=== PATIENT | female | born 1995 | race Caucasian/White ===

== ENCOUNTER 2018-11-04 22:08 | Inpatient (IN) | payer OTHER ==
[2018-11-04 22:41] LABS: ADD MAN DIFF? NO
[2018-11-04 22:44] LABS: WHITE BLOOD COUNT 13.7 10^3/ul (4.8-10.8)
[2018-11-04 22:44] LABS: BASOPHIL # 0.1 10^3/ul (0.0-0.1); BASOPHILS % 0.4 % (0.0-2.0); EOSINOPHILS # 0.1 10^3/ul (0.0-0.5); EOSINOPHILS % 0.4 % (0.0-7.0); HEMATOCRIT 39.3 % (37.0-47.0); HEMOGLOBIN 13.1 g/dl (12.0-16.0); LYMPHOCYTES # 1.5 10^3/ul (0.8-2.9); MEAN CORPUSCULAR HGB CONC 33.3 g/dl (32.0-37.0); MEAN CORPUSCULAR VOLUME 90.1 fl (82.0-101.0); MEAN PLATELET VOLUME 11.5 fl (7.4-10.4); MONOCYTE # 0.9 10^3/ul (0.3-0.9); MONOCYTES % 6.5 % (0.0-11.0); NEUTROPHIL # 11.1 10^3/ul (1.6-7.5); NEUTROPHILS % 81.3 % (39.0-77.0); PLATELET COUNT 318 10^3/UL (140-415); RED BLOOD COUNT 4.36 10^6/ul (4.20-5.40); RED CELL DISTRIBUTION WIDTH 12.9 % (11.5-14.5)
[2018-11-04 23:03] LABS: ALANINE AMINOTRANSFERASE 17 IU/L (13-69); ALBUMIN 4.4 g/dl (3.3-4.9); ALBUMIN/GLOBULIN RATIO 1.29; ALKALINE PHOSPHATASE 94 IU/L (42-121); ANION GAP 9 (5-13); ASPARTATE AMINO TRANSFERASE 24 IU/L (15-46); BILIRUBIN,INDIRECT 0.4 mg/dl (0-1.1); BILIRUBIN,TOTAL 0.4 mg/dl (0.2-1.3); BLOOD UREA NITROGEN 13 mg/dl (7-20); CALCIUM 9.9 mg/dl (8.4-10.2); CARBON DIOXIDE 28 mmol/L (21-31); CHLORIDE 103 mmol/L (97-110); CREATININE 0.41 mg/dl (0.44-1.00); Estimated GFR > 60 mL/min (>60); GLUCOSE 96 mg/dl (70-220); INR 0.93; POTASSIUM 3.9 mmol/L (3.5-5.1); PROTIME 12.6 Sec (11.9-14.9); SODIUM 140 mmol/L (135-144); TOTAL PROTEIN 7.8 g/dl (6.1-8.1)
[2018-11-04 23:04] LABS: PARTIAL THROMBOPLASTIN TIME 32.7 Sec (23.0-35.0)
[2018-11-04 23:06] LABS: MODE TRACH COLLAR; MetHgb Venous 0.4 %; Sample Type Blood venous; Site VENOUS LINE; Venous COHb 0 %; Venous Fraction OxyHgb 92.4 %; Venous Oxygen Sat 92.8 mmHG (55.0-75.0); Venous Total Hemglobin 13.7 g/dl
[2018-11-04] MEDS: SOD CHLORIDE 0.9% 1,000 ML IV (23:11)
[2018-11-04 23:15] LABS: TROPONIN-I < 0.012 ng/ml (0.000-0.120)
[2018-11-04 23:17] LABS: ADD UMIC NO; UR ASCORBIC ACID 40 mg/dL (NEGATIVE); UR BILIRUBIN (Dip) NEGATIVE (NEGATIVE); UR BLOOD (Dip) NEGATIVE (NEGATIVE); UR CLARITY SLIGHTLY CLOUDY (CLEAR); UR COLOR YELLOW (YELLOW); UR GLUCOSE (Dip) 3+ mg/dL (NEGATIVE); UR KETONES (Dip) TRACE mg/dL (NEGATIVE); UR LEUKOCYTE ESTERASE (Dip) NEGATIVE Leu/ul (NEGATIVE); UR MUCUS FEW /HPF (NONE SEEN); UR NITRITE (Dip) NEGATIVE (NEGATIVE); UR RBC 2 /HPF (0-5); UR SPECIFIC GRAVITY (Dip) 1.031 (1.003-1.030); UR TOTAL PROTEIN (Dip) NEGATIVE (NEGATIVE); UR UROBILINOGEN (Dip) NEGATIVE (NEGATIVE); UR WBC 1 /HPF (0-5)
[2018-11-04 23:36] LABS: PROCALCITONIN 1.15 ng/mL (0.00-0.10)
[2018-11-05 00:54] LABS: LACTIC ACID 0.9 mmol/L (0.5-2.0)
[2018-11-05] MEDS: PIPER-TAZO 3.375 GM IV (PMX) 100 ML IVPB (00:59)
[2018-11-05] MEDS: VANCOMYCIN 1 GM (PMX) 250 ML IVPB (01:32)
[2018-11-05 03:37] LABS: LACTIC ACID 0.8 mmol/L (0.5-2.0)
[2018-11-05] MEDS: ACETAMINOPHEN 650 MG SUPP PR (09:22)
[2018-11-05] MEDS ORDERED: NACL 0.9% 3 ML SYG IV (10:00)
[2018-11-05] MEDS ORDERED: MAGNESIUM HYDROXIDE 30ML CUP PO (10:00)
[2018-11-05] MEDS ORDERED: BISACODYL 10 MG SUPP PR (10:00)
[2018-11-05] MEDS ORDERED: DOCUSATE SODIUM 100 MG CAP PO (10:00)
[2018-11-05] MEDS ORDERED: ACETAMINOPHEN 650 MG SUPP PR (10:00)
[2018-11-05] MEDS ORDERED: BISACODYL (EC) 5 MG TAB PO (10:00)
[2018-11-05] MEDS ORDERED: ONDANSETRON 4 MG TAB PO (10:00)
[2018-11-05] MEDS: CEFTRIAXONE 1 GM/50 ML (PMX) 50 ML IVPB (11:21)
[2018-11-05] MEDS: SOD CHLORIDE 0.9% 1,000 ML IV (11:21)
[2018-11-05] MEDS: ALBUTEROL/IPRATROPIUM (NEB) 3 ML AMP HHN ×2 (13:44→20:41)
[2018-11-05] MEDS ORDERED: LOPERAMIDE 2 MG CAP GTB (15:00)
[2018-11-05] MEDS ORDERED: LORAZEPAM 0.5 MG TAB GTB (15:00)
[2018-11-05] MEDS: ENOXAPARIN 40 MG/0.4 ML SYG SC (15:28)
[2018-11-05] MEDS: ASCORBIC ACID 500 MG TAB GTB (16:35)
[2018-11-05] MEDS: ASPIRIN 81 MG TAB GTB (16:35)
[2018-11-05] MEDS: INSULIN ASPART [NOVOLOG] 3 ML PEN SC ×2 (18:08→20:56)
[2018-11-05] MEDS: HYDROmorphONE 2 MG TAB GTB (19:44)
[2018-11-05] MEDS: FAMOTIDINE 20 MG TAB GTB (20:29)
[2018-11-05] MEDS: METOPROLOL 50 MG TAB GTB (20:30)
[2018-11-06] MEDS: ALBUTEROL/IPRATROPIUM (NEB) 3 ML AMP HHN ×4 (02:16→20:22)
[2018-11-06] MEDS: HYDROmorphONE 2 MG TAB GTB ×2 (03:22→10:47)
[2018-11-06] MEDS: SOD CHLORIDE 0.9% 1,000 ML IV (05:40)
[2018-11-06] MEDS: PANTOPRAZOLE (EC) 40 MG TAB PO (05:41)
[2018-11-06 06:10] LABS: ADD MAN DIFF? NO
[2018-11-06] MEDS: BACLOFEN 10 MG TAB GTB ×2 (06:29→21:51)
[2018-11-06 06:35] LABS: WHITE BLOOD COUNT 9.7 10^3/ul (4.8-10.8)
[2018-11-06 06:35] LABS: BASOPHIL # 0.1 10^3/ul (0.0-0.1); BASOPHILS % 0.6 % (0.0-2.0); EOSINOPHILS # 0.1 10^3/ul (0.0-0.5); EOSINOPHILS % 1.3 % (0.0-7.0); HEMATOCRIT 32.1 % (37.0-47.0); HEMOGLOBIN 10.3 g/dl (12.0-16.0); LYMPHOCYTES # 1.2 10^3/ul (0.8-2.9); LYMPHOCYTES % 12.3 % (15.0-51.0); MEAN CORPUSCULAR HEMOGLOBIN 30.1 pg (29.0-33.0); MEAN CORPUSCULAR HGB CONC 32.1 g/dl (32.0-37.0); MEAN CORPUSCULAR VOLUME 93.9 fl (82.0-101.0); MEAN PLATELET VOLUME 12.4 fl (7.4-10.4); MONOCYTE # 0.6 10^3/ul (0.3-0.9); MONOCYTES % 6.6 % (0.0-11.0); NEUTROPHIL # 7.7 10^3/ul (1.6-7.5); NEUTROPHILS % 78.6 % (39.0-77.0); PLATELET COUNT 229 10^3/UL (140-415); RED BLOOD COUNT 3.42 10^6/ul (4.20-5.40); RED CELL DISTRIBUTION WIDTH 12.9 % (11.5-14.5)
[2018-11-06] MEDS ORDERED: GLUCOSE GEL 15 GRAM TUBE PO ×2 (07:00)
[2018-11-06] MEDS ORDERED: GLUCOSE GEL 15 GRAM TUBE BUCCAL (07:00)
[2018-11-06] MEDS ORDERED: GLUCAGON 1 MG INJ IM (07:00)
[2018-11-06 07:16] LABS: ANION GAP 11 (5-13); CARBON DIOXIDE 20 mmol/L (21-31); CHLORIDE 108 mmol/L (97-110); POTASSIUM 4.3 mmol/L (3.5-5.1); SODIUM 139 mmol/L (135-144)
[2018-11-06 07:17] LABS: BLOOD UREA NITROGEN 10 mg/dl (7-20); CALCIUM 9.1 mg/dl (8.4-10.2); CREATININE 0.46 mg/dl (0.44-1.00); Estimated GFR > 60 mL/min (>60)
[2018-11-06 07:21] LABS: GLUCOSE 406 mg/dl (70-220)
[2018-11-06] MEDS: ONDANSETRON 4 MG INJ IV (07:32)
[2018-11-06] MEDS: INSULIN ASPART [NOVOLOG] 3 ML PEN SC ×4 (08:42→21:34)
[2018-11-06 08:56] LABS: HEMOGLOBIN A1C 6.6 % (0-5.9)
[2018-11-06] MEDS ORDERED: LINAGLIPTIN 5 MG TABLET G-TUBE (11:00)
[2018-11-06] MEDS: ASCORBIC ACID 500 MG TAB GTB (11:06)
[2018-11-06] MEDS: ASPIRIN 81 MG TAB GTB (11:06)
[2018-11-06] MEDS: FAMOTIDINE 20 MG TAB GTB ×2 (11:07→21:25)
[2018-11-06] MEDS: CEFTRIAXONE 1 GM/50 ML (PMX) 50 ML IVPB (11:07)
[2018-11-06] MEDS: ENOXAPARIN 40 MG/0.4 ML SYG SC (11:09)
[2018-11-06] MEDS: METOPROLOL 50 MG TAB GTB ×3 (11:14→21:53)
[2018-11-06] MEDS: HYDROCODONE/APAP (5/325) TAB GTB (14:49)
[2018-11-06] MEDS: ACETAMINOPHEN 160 MG/5ML CUP GTB (17:39)
[2018-11-06] MEDS ORDERED: INSULIN GLARGINE [LANTus] (100 UNITS/ML) SYG SC (21:00)
[2018-11-06] MEDS: INSULIN GLARGINE [LANTus] (100 UNITS/ML) SYG SC (21:34)
[2018-11-07] MEDS: SOD CHLORIDE 0.9% 1,000 ML IV ×2 (00:08→22:03)
[2018-11-07] MEDS: ALBUTEROL/IPRATROPIUM (NEB) 3 ML AMP HHN ×4 (01:10→19:46)
[2018-11-07] MEDS: ACCU-CHEK XX (01:54)
[2018-11-07] MEDS: PANTOPRAZOLE (EC) 40 MG TAB PO (05:32)
[2018-11-07 06:07] LABS: ADD MAN DIFF? NO
[2018-11-07 06:32] LABS: BASOPHIL # 0.1 10^3/ul (0.0-0.1); BASOPHILS % 1.2 % (0.0-2.0); EOSINOPHILS # 0.3 10^3/ul (0.0-0.5); EOSINOPHILS % 4.6 % (0.0-7.0); HEMATOCRIT 32.4 % (37.0-47.0); HEMOGLOBIN 10.4 g/dl (12.0-16.0); LYMPHOCYTES # 1.7 10^3/ul (0.8-2.9); LYMPHOCYTES % 29.7 % (15.0-51.0); MEAN CORPUSCULAR HEMOGLOBIN 29.4 pg (29.0-33.0); MEAN CORPUSCULAR HGB CONC 32.1 g/dl (32.0-37.0); MEAN CORPUSCULAR VOLUME 91.5 fl (82.0-101.0); MEAN PLATELET VOLUME 11.7 fl (7.4-10.4); MONOCYTE # 0.5 10^3/ul (0.3-0.9); NEUTROPHIL # 3.1 10^3/ul (1.6-7.5); NEUTROPHILS % 54.6 % (39.0-77.0); PLATELET COUNT 260 10^3/UL (140-415); RED BLOOD COUNT 3.54 10^6/ul (4.20-5.40); RED CELL DISTRIBUTION WIDTH 12.9 % (11.5-14.5)
[2018-11-07 06:32] LABS: WHITE BLOOD COUNT 5.7 10^3/ul (4.8-10.8)
[2018-11-07 06:50] LABS: ANION GAP 7 (5-13); BLOOD UREA NITROGEN 9 mg/dl (7-20); CARBON DIOXIDE 24 mmol/L (21-31); CHLORIDE 109 mmol/L (97-110); CREATININE 0.45 mg/dl (0.44-1.00); Estimated GFR > 60 mL/min (>60); GLUCOSE 190 mg/dl (70-220); POTASSIUM 3.8 mmol/L (3.5-5.1); SODIUM 140 mmol/L (135-144)
[2018-11-07] MEDS: FAMOTIDINE 20 MG TAB GTB ×2 (09:05→21:10)
[2018-11-07] MEDS: ASCORBIC ACID 500 MG TAB GTB (09:05)
[2018-11-07] MEDS: ASPIRIN 81 MG TAB GTB (09:05)
[2018-11-07] MEDS: METOPROLOL 50 MG TAB GTB ×2 (09:06→21:11)
[2018-11-07] MEDS: ENOXAPARIN 40 MG/0.4 ML SYG SC (09:13)
[2018-11-07] MEDS: INSULIN ASPART [NOVOLOG] 3 ML PEN SC ×2 (09:13→11:45)
[2018-11-07] MEDS: CEFTRIAXONE 1 GM/50 ML (PMX) 50 ML IVPB (11:28)
[2018-11-07] MEDS ORDERED: VANCOMYCIN IV PER PHARMACY XX ×2 (11:30→12:00)
[2018-11-07] MEDS: VANCOMYCIN HCL 1.5 GM in SOD CHLORIDE 0.9% 250 ML IVPB (13:25)
[2018-11-07] MEDS ORDERED: INSULIN ASPART [NOVOLOG] 3 ML PEN SC (18:00)
[2018-11-07] MEDS: Insulin NOVOLOG SS MODERATE Algorithm(NPO/TPN/ENTERAL FEEDS) SC (18:20)
[2018-11-07] MEDS: VANCOMYCIN 1 GM 250 ML IVPB (21:10)
[2018-11-07] MEDS: INSULIN GLARGINE [LANTus] (100 UNITS/ML) SYG SC (21:31)
[2018-11-08] MEDS: DEXTROSE 50% 50 ML SYRINGE IV (00:56)
[2018-11-08] MEDS: ALBUTEROL/IPRATROPIUM (NEB) 3 ML AMP HHN ×4 (01:31→19:34)
[2018-11-08] MEDS: ACCU-CHEK XX ×2 (02:00→20:01)
[2018-11-08 05:50] LABS: ADD MAN DIFF? NO
[2018-11-08 05:53] LABS: BASOPHILS % 0.7 % (0.0-2.0); EOSINOPHILS # 0.4 10^3/ul (0.0-0.5); EOSINOPHILS % 6.5 % (0.0-7.0); HEMATOCRIT 32.6 % (37.0-47.0); HEMOGLOBIN 10.9 g/dl (12.0-16.0); LYMPHOCYTES # 1.4 10^3/ul (0.8-2.9); LYMPHOCYTES % 24.2 % (15.0-51.0); MEAN CORPUSCULAR HGB CONC 33.4 g/dl (32.0-37.0); MEAN CORPUSCULAR VOLUME 89.8 fl (82.0-101.0); MEAN PLATELET VOLUME 11.5 fl (7.4-10.4); MONOCYTE # 0.7 10^3/ul (0.3-0.9); MONOCYTES % 12.2 % (0.0-11.0); NEUTROPHIL # 3.1 10^3/ul (1.6-7.5); NEUTROPHILS % 55.5 % (39.0-77.0); PLATELET COUNT 258 10^3/UL (140-415); RED BLOOD COUNT 3.63 10^6/ul (4.20-5.40); RED CELL DISTRIBUTION WIDTH 12.7 % (11.5-14.5)
[2018-11-08 05:53] LABS: WHITE BLOOD COUNT 5.6 10^3/ul (4.8-10.8)
[2018-11-08 06:01] LABS: PHOSPHORUS 3.4 mg/dl (2.5-4.9)
[2018-11-08 06:01] LABS: MAGNESIUM 1.8 mg/dl (1.7-2.5)
[2018-11-08 06:18] LABS: ANION GAP 6 (5-13); BLOOD UREA NITROGEN 5 mg/dl (7-20); CALCIUM 8.7 mg/dl (8.4-10.2); CARBON DIOXIDE 27 mmol/L (21-31); CHLORIDE 106 mmol/L (97-110); CREATININE 0.39 mg/dl (0.44-1.00); Estimated GFR > 60 mL/min (>60); GLUCOSE 169 mg/dl (70-220); POTASSIUM 3.6 mmol/L (3.5-5.1); SODIUM 139 mmol/L (135-144)
[2018-11-08] MEDS: VANCOMYCIN 1 GM 250 ML IVPB (06:39)
[2018-11-08] MEDS: Insulin NOVOLOG SS MODERATE Algorithm(NPO/TPN/ENTERAL FEEDS) SC ×4 (06:50→18:08)
[2018-11-08] MEDS: METOPROLOL 50 MG TAB GTB ×2 (10:29→10:31)
[2018-11-08] MEDS: ASCORBIC ACID 500 MG TAB GTB (10:30)
[2018-11-08] MEDS: ASPIRIN 81 MG TAB GTB (10:31)
[2018-11-08] MEDS: FAMOTIDINE 20 MG TAB GTB ×2 (10:31→21:15)
[2018-11-08] MEDS: CEFTRIAXONE 1 GM/50 ML (PMX) 50 ML IVPB (10:32)
[2018-11-08] MEDS: ENOXAPARIN 40 MG/0.4 ML SYG SC (11:04)
[2018-11-08] MEDS: VANCOMYCIN 750 MG (PMX) 250 ML IVPB (18:04)
[2018-11-08] MEDS: INSULIN ASPART [NOVOLOG] 3 ML PEN SC (20:00)
[2018-11-08] MEDS: INSULIN GLARGINE [LANTus] (100 UNITS/ML) SYG SC (21:33)
[2018-11-09] MEDS: VANCOMYCIN 750 MG (PMX) 250 ML IVPB ×3 (00:08→16:48)
[2018-11-09] MEDS: Insulin NOVOLOG SS MODERATE Algorithm(NPO/TPN/ENTERAL FEEDS) SC ×5 (00:12→22:45)
[2018-11-09] MEDS: HYDROCODONE/APAP (5/325) TAB GTB (00:38)
[2018-11-09] MEDS: ALBUTEROL/IPRATROPIUM (NEB) 3 ML AMP HHN ×4 (01:16→19:56)
[2018-11-09] MEDS: ACCU-CHEK XX ×2 (02:00→13:17)
[2018-11-09] MEDS: ASCORBIC ACID 500 MG TAB GTB (08:30)
[2018-11-09] MEDS: METOPROLOL 50 MG TAB GTB ×2 (08:31→20:53)
[2018-11-09] MEDS: ASPIRIN 81 MG TAB GTB (08:31)
[2018-11-09] MEDS: FAMOTIDINE 20 MG TAB GTB ×2 (08:31→20:53)
[2018-11-09] MEDS: ENOXAPARIN 40 MG/0.4 ML SYG SC (08:41)
[2018-11-09] MEDS: INSULIN ASPART [NOVOLOG] 3 ML PEN SC (13:24)
[2018-11-09] MEDS ORDERED: CEFTAZIDIME 1GM/50 ML (PMX) 50 ML IVPB (14:00)
[2018-11-09] MEDS: CEFEPIME 1GM/50 ML (PMX) 50 ML IVPB ×2 (16:20→20:52)
[2018-11-09] MEDS: DILTIAZEM 25 MG INJ IV (18:14)
[2018-11-09] MEDS: INSULIN GLARGINE [LANTus] (100 UNITS/ML) SYG SC (20:55)
[2018-11-09 22:20] LABS: GLUCOSE 423 mg/dl (70-220)
[2018-11-09 23:54] LABS: VANCOMYCIN,TROUGH 14.6 ug/ml (10.0-20.0)
[2018-11-10] MEDS: VANCOMYCIN 750 MG (PMX) 250 ML IVPB ×4 (00:06→23:23)
[2018-11-10] MEDS: DILTIAZEM 25 MG INJ IV (00:31)
[2018-11-10] MEDS: ALBUTEROL/IPRATROPIUM (NEB) 3 ML AMP HHN ×4 (01:28→20:34)
[2018-11-10] MEDS: ACCU-CHEK XX (02:00)
[2018-11-10] MEDS: Insulin NOVOLOG SS MODERATE Algorithm(NPO/TPN/ENTERAL FEEDS) SC ×3 (05:53→16:57)
[2018-11-10 08:16] LABS: ADD MAN DIFF? NO
[2018-11-10 08:27] LABS: WHITE BLOOD COUNT 6.4 10^3/ul (4.8-10.8)
[2018-11-10 08:27] LABS: BASOPHIL # 0.1 10^3/ul (0.0-0.1); BASOPHILS % 0.8 % (0.0-2.0); EOSINOPHILS # 0.3 10^3/ul (0.0-0.5); EOSINOPHILS % 5.3 % (0.0-7.0); HEMATOCRIT 33.1 % (37.0-47.0); HEMOGLOBIN 11.2 g/dl (12.0-16.0); LYMPHOCYTES # 1.1 10^3/ul (0.8-2.9); LYMPHOCYTES % 17.1 % (15.0-51.0); MEAN CORPUSCULAR HEMOGLOBIN 30.1 pg (29.0-33.0); MEAN CORPUSCULAR HGB CONC 33.8 g/dl (32.0-37.0); MEAN PLATELET VOLUME 11.1 fl (7.4-10.4); MONOCYTE # 0.8 10^3/ul (0.3-0.9); NEUTROPHIL # 4.1 10^3/ul (1.6-7.5); PLATELET COUNT 313 10^3/UL (140-415); RED BLOOD COUNT 3.72 10^6/ul (4.20-5.40); RED CELL DISTRIBUTION WIDTH 12.9 % (11.5-14.5)
[2018-11-10 08:57] LABS: ANION GAP 9 (5-13); BLOOD UREA NITROGEN 10 mg/dl (7-20); CALCIUM 9.3 mg/dl (8.4-10.2); CARBON DIOXIDE 25 mmol/L (21-31); CHLORIDE 108 mmol/L (97-110); Estimated GFR > 60 mL/min (>60); GLUCOSE 92 mg/dl (70-220); POTASSIUM 3.4 mmol/L (3.5-5.1); SODIUM 142 mmol/L (135-144)
[2018-11-10] MEDS: ASCORBIC ACID 500 MG TAB GTB (09:13)
[2018-11-10] MEDS: BACLOFEN 10 MG TAB GTB (09:13)
[2018-11-10] MEDS: HYDROCODONE/APAP (5/325) TAB GTB ×2 (09:13→23:23)
[2018-11-10] MEDS: ASPIRIN 81 MG TAB GTB (09:13)
[2018-11-10] MEDS: FAMOTIDINE 20 MG TAB GTB ×2 (09:13→21:33)
[2018-11-10] MEDS: METOPROLOL 50 MG TAB GTB ×2 (09:14→21:36)
[2018-11-10] MEDS: GUAIFENESIN 20 MG/ML 5ML CUP PO (09:14)
[2018-11-10] MEDS: CEFEPIME 1GM/50 ML (PMX) 50 ML IVPB ×2 (09:14→21:36)
[2018-11-10] MEDS: ENOXAPARIN 40 MG/0.4 ML SYG SC (09:48)
[2018-11-10] MEDS: SOD CHLORIDE 0.9% 500 ML IV (13:52)
[2018-11-10] MEDS: POTASSIUM CHLORIDE 50 ML IVPB ×3 (13:52→17:25)
[2018-11-10] MEDS: SOD CHLORIDE 0.9% 1,000 ML IV ×2 (13:53→23:20)
[2018-11-10] MEDS: DEXTROSE 50% 50 ML SYRINGE IV (16:32)
[2018-11-10 17:09] LABS: GLUCOSE 223 mg/dl (70-220)
[2018-11-10 20:02] LABS: FREE T4 (FREE THYROXINE) 1.35 ng/dl (0.79-2.35)
[2018-11-10] MEDS: INSULIN GLARGINE [LANTus] (100 UNITS/ML) SYG SC (21:50)
[2018-11-10] MEDS: DILTIAZEM 30 MG TAB PO (23:22)
[2018-11-11] MEDS: ALBUTEROL/IPRATROPIUM (NEB) 3 ML AMP HHN ×3 (01:02→14:29)
[2018-11-11] MEDS: Insulin NOVOLOG SS MODERATE Algorithm(NPO/TPN/ENTERAL FEEDS) SC ×4 (01:09→18:30)
[2018-11-11] MEDS: ACCU-CHEK XX (02:00)
[2018-11-11] MEDS: DILTIAZEM 30 MG TAB PO ×2 (06:58→14:23)
[2018-11-11] MEDS: ASCORBIC ACID 500 MG TAB GTB (08:39)
[2018-11-11] MEDS: FAMOTIDINE 20 MG TAB GTB (08:39)
[2018-11-11] MEDS: ASPIRIN 81 MG TAB GTB (08:39)
[2018-11-11] MEDS: VANCOMYCIN 750 MG (PMX) 250 ML IVPB ×2 (08:39→15:30)
[2018-11-11] MEDS: METOPROLOL 50 MG TAB GTB (08:40)
[2018-11-11] MEDS: ENOXAPARIN 40 MG/0.4 ML SYG SC (09:25)
[2018-11-11] MEDS: CEFEPIME 1GM/50 ML (PMX) 50 ML IVPB (11:31)
[2018-11-11] MEDS: SOD CHLORIDE 0.9% 1,000 ML IV (11:41)
== END 2018-11-11 18:45 | DRG 207 ==
LOC: 6WM 11-05 00:30 → E/R 22:08
PROC: 4A033R1 Measurement of Arterial Saturation, Peripheral, Percutaneous Approach (ICD-10-PCS; 2018-11-04)
PROC: 5A1955Z Respiratory Ventilation, Greater than 96 Consecutive Hours (ICD-10-PCS; principal; 2018-11-05)
DX: J15.1 Pneumonia due to Pseudomonas (principal); Z99.11 Dependence on respirator [ventilator] status; F11.20 Opioid dependence, uncomplicated; G93.49 Other encephalopathy; J96.10 Chronic respiratory failure, unspecified whether with hypoxia or hypercapnia; J15.212 Pneumonia due to Methicillin resistant Staphylococcus aureus; E10.65 Type 1 diabetes mellitus with hyperglycemia; M62.838 Other muscle spasm; D64.9 Anemia, unspecified; K21.9 Gastro-esophageal reflux disease without esophagitis; R13.10 Dysphagia, unspecified; I10 Essential (primary) hypertension; Z93.0 Tracheostomy status; Z93.1 Gastrostomy status; Z88.2 Allergy status to sulfonamides; Z86.73 Personal history of transient ischemic attack (TIA), and cerebral infarction without residual deficits
CPT/HCPCS: 36415; 70450; 71045; 80048; 80053; 80202; 81001; 81003; 82803; 82947; 82962; 83036; 83605; 83735; 84100; 84145; 84439; 84443; 84484; 85025; 85610; 85730; 87040-91; 87070; 87086; 89220; 93005; 93306; 94640; 94664; 99285-25